=== PATIENT | male | born 1965 | race Caucasian/White ===

== ENCOUNTER → 2018-06-06 08:30 | Outpatient (CLI) | payer OTHER, SELFPAY ==
[2018-06-06 10:21] LABS: Microalbumin,Random Urine 12.6 mg/L (NO RANGE EST.); Microalbumin:Creatinine Ratio 18.6 mg/g CRE (<30 mg/g CRE)
[2018-06-06 10:40] LABS: AST(SGOT) 31 U/L (15-37); Alanine Aminotransfer ALT/SGPT 71 U/L (16-61); Albumin, Serum 3.9 g/dL (3.2-5.0); Alkaline Phosphatase 89 U/L (45-117); Anion Gap 7 (5-15); BUN 19 mg/dL (7-18); BUN/Creat Ratio 26.2 RATIO (10-20); Bilirubin, Direct 0.17 mg/dL (0.00-0.30); Calcium,Total 8.9 mg/dL (8.5-10.1); Chloride 107 mmol/L (98-107); Cholesterol 102 mg/dL (200); Creatinine, Serum 0.72 mg/dL (0.70-1.30); EST Glomerular Filtration Rate 120 mL/min (>60); Est Glom Filt Rate - Afr Amer 145 mL/min (>60); Globulin 3.6 g/dL (2.2-4.2); Glucose 121 mg/dL (74-106); High Density Lipoprotein 54 mg/dL; Potassium 4.2 mmol/L (3.5-5.1); Protein, Total 7.5 g/dL (6.4-8.2); Sodium Level 143 mmol/L (136-145); Triglycerides 51 mg/dL; Very Low Density Lipoprotein 10 mg/dL (5-40)
== END ==
PROVIDERS: Family Provider Family Medicine; PCP Family Medicine; Visit Provider Family Medicine
DX: E11.9 Type 2 diabetes mellitus without complications (principal)
CPT/HCPCS: 36415; 80048; 80061; 80076; 82043; 82570

== ENCOUNTER → 2018-12-20 09:38 | Outpatient (CLI) | payer OTHER, SELFPAY ==
[2018-12-20 12:40] LABS: Microalbumin,Random Urine 37.9 mg/L (NO RANGE EST.); Microalbumin:Creatinine Ratio 48.1 mg/g CRE (<30 mg/g CRE)
[2018-12-20 12:47] LABS: Anion Gap 9 (5-15); BUN 13 mg/dL (7-18); BUN/Creat Ratio 20.9 RATIO (10-20); Calcium,Total 8.5 mg/dL (8.5-10.1); Chloride 109 mmol/L (98-107); Cholesterol 104 mg/dL (200); Creatinine, Serum 0.62 mg/dL (0.70-1.30); EST Glomerular Filtration Rate 143 mL/min (>60); Est Glom Filt Rate - Afr Amer 173 mL/min (>60); Glucose 78 mg/dL (74-106); High Density Lipoprotein 51 mg/dL; Potassium 4.1 mmol/L (3.5-5.1); Sodium Level 144 mmol/L (136-145); Triglycerides 50 mg/dL; Very Low Density Lipoprotein 10 mg/dL (5-40)
== END ==
PROVIDERS: Family Provider Family Medicine; PCP Family Medicine; Visit Provider Family Medicine
DX: E11.9 Type 2 diabetes mellitus without complications (principal)
CPT/HCPCS: 36415; 80048; 80061; 82043; 82570

== ENCOUNTER → 2019-06-19 09:05 | Outpatient (CLI) | payer OTHER, SELFPAY ==
[2019-06-19 11:07] LABS: Anion Gap 4 (5-15); BUN 18 mg/dL (7-18); BUN/Creat Ratio 25.4 RATIO (10-20); Chloride 109 mmol/L (98-107); Cholesterol 117 mg/dL (200); Creatinine, Serum 0.71 mg/dL (0.70-1.30); EST Glomerular Filtration Rate 122 mL/min (>60); Est Glom Filt Rate - Afr Amer 148 mL/min (>60); Glucose 89 mg/dL (74-106); High Density Lipoprotein 58 mg/dL; Potassium 4.1 mmol/L (3.5-5.1); Sodium Level 141 mmol/L (136-145); Triglycerides 54 mg/dL; Very Low Density Lipoprotein 11 mg/dL (5-40)
== END ==
PROVIDERS: Family Provider Family Medicine; PCP Family Medicine; Referring Provider Family Medicine; Visit Provider Family Medicine
DX: I10 Essential (primary) hypertension (principal)
CPT/HCPCS: 36415; 80048; 80061

== ENCOUNTER → 2019-12-20 | Outpatient (CLI) | payer OTHER, SELFPAY ==
[2019-12-20 10:38] LABS: Anion Gap 4 (5-15); BUN 17 mg/dL (7-18); BUN/Creat Ratio 21.8 RATIO (10-20); Calcium,Total 9.3 mg/dL (8.5-10.1); Chloride 109 mmol/L (98-107); Cholesterol 134 mg/dL (200); Creatinine, Serum 0.78 mg/dL (0.70-1.30); EST Glomerular Filtration Rate 109 mL/min (>60); Est Glom Filt Rate - Afr Amer 132 mL/min (>60); Glucose 76 mg/dL (74-106); High Density Lipoprotein 56 mg/dL; Potassium 3.8 mmol/L (3.5-5.1); Sodium Level 141 mmol/L (136-145); Triglycerides 59 mg/dL; Very Low Density Lipoprotein 12 mg/dL (5-40)
[2019-12-20 10:51] LABS: Microalbumin,Random Urine 71.3 mg/L (NO RANGE EST.)
== END | disposition home or self-care (01) ==
LOC: MFPLAB 09:06
PROVIDERS: PCP Family Medicine; Referring Provider Family Medicine; Visit Provider Family Medicine
DX: E11.9 Type 2 diabetes mellitus without complications (principal); I10 Essential (primary) hypertension
CPT/HCPCS: 36415; 80048; 80061; 82043

== ENCOUNTER → 2020-04-21 | Outpatient (CLI) | payer OTHER, SELFPAY ==
--- NOTE | 2020-04-21 08:00 | RAD_ITS ---
STUDY: X-RAY - ESOPHAGUS (BARIUM SWALLOW) WITH FLUOROSCOPY REASON FOR EXAM: Male, 54 years old. DYSPHAGIA X2.5 MONTHS- GETTING WORSE, ACID REFLUX, MID CHEST PAIN and quot; SORE SPOT and quot; AT TIMES WHEN EATING OR DRINKING -- 14 FLUORO IMAGES, 34 FLUORO SEC, 16.13mGy TECHNIQUE: 14 view(s) of the esophagus were obtained following swallowing of barium. FLUOROSCOPY TIME (if supplied): (0:34) minutes/seconds COMPARISON: None. FINDINGS: There is no demonstrated esophageal foreign body. There is no demonstrated stricture or mucosal abnormality. Normal gastroesophageal junction, without a demonstrated hiatal hernia. The patient ingested a 12 mm tablet of barium without any difficulty. Normal visualized aortic arch and descending thoracic aorta. Normal visualized pulmonary parenchyma. Normal visualized osseous structures of the thorax. RAD/Esophagus Dual Contrast IMPRESSION: Normal plain film x-ray examination (barium swallow) of the esophagus. Electronically Signed: Hilton Foster, at 8:37 EDT , Service support ,
== END | disposition home or self-care (01) ==
PROVIDERS: PCP Family Medicine; Referring Provider Family Medicine; Visit Provider Family Medicine
DX: R13.10 Dysphagia, unspecified (principal)
CPT/HCPCS: 74221

== ENCOUNTER → 2020-05-13 11:42 | Outpatient (CLI) | payer OTHER, SELFPAY | PROVIDERS: PCP Family Medicine; Visit Provider Internal Medicine Gastroenterology | DX: Z11.59 Encounter for screening for other viral diseases (principal) | CPT/HCPCS: 87635; G2023; U0003 ==

== ENCOUNTER → 2020-06-19 09:01 | Outpatient (CLI) | payer OTHER, SELFPAY ==
[2020-06-19 10:13] LABS: Anion Gap 5 (5-15); BUN 18 mg/dL (7-18); BUN/Creat Ratio 25.9 RATIO (10-20); Calcium,Total 9.1 mg/dL (8.5-10.1); Chloride 106 mmol/L (98-107); Cholesterol 114 mg/dL (200); EST Glomerular Filtration Rate 125 mL/min (>60); Est Glom Filt Rate - Afr Amer 151 mL/min (>60); Glucose 145 mg/dL (74-106); High Density Lipoprotein 57 mg/dL; Potassium 4.2 mmol/L (3.5-5.1); Sodium Level 140 mmol/L (136-145); Triglycerides 57 mg/dL; Very Low Density Lipoprotein 11 mg/dL (5-40)
== END ==
PROVIDERS: PCP Family Medicine; Referring Provider Family Medicine; Visit Provider Family Medicine
DX: E11.9 Type 2 diabetes mellitus without complications (principal)
CPT/HCPCS: 36415; 80048; 80061

== ENCOUNTER → 2020-12-17 08:41 | Outpatient (CLI) | payer OTHER, SELFPAY ==
[2020-12-17 10:50] LABS: Anion Gap 5 (5-15); BUN 16 mg/dL (7-18); Calcium,Total 9.1 mg/dL (8.5-10.1); Chloride 110 mmol/L (98-107); Cholesterol 118 mg/dL (200); EST Glomerular Filtration Rate 125 mL/min (>60); Est Glom Filt Rate - Afr Amer 151 mL/min (>60); Glucose 85 mg/dL (74-106); High Density Lipoprotein 63 mg/dL; Potassium 3.8 mmol/L (3.5-5.1); Sodium Level 143 mmol/L (136-145); Triglycerides 41 mg/dL; Very Low Density Lipoprotein 8 mg/dL (5-40)
== END ==
PROVIDERS: PCP Family Medicine; Referring Provider Family Medicine; Visit Provider Family Medicine
DX: E11.9 Type 2 diabetes mellitus without complications (principal)
CPT/HCPCS: 36415; 80048; 80061

== ENCOUNTER → 2022-10-10 | Outpatient (CLI) | payer OTHER, SELFPAY ==
[2022-10-10 10:05] LABS: Anion Gap 5 (5-15); BUN 19 mg/dL (7-18); BUN/Creat Ratio 25.6 RATIO (10-20); Calcium,Total 9.5 mg/dL (8.5-10.1); Chloride 107 mmol/L (98-107); Cholesterol 131 mg/dL (200); Creatinine, Serum 0.74 mg/dL (0.70-1.30); EST Glomerular Filtration Rate 115 mL/min (>60); Est Glom Filt Rate - Afr Amer 139 mL/min (>60); Glucose 125 mg/dL (74-106); High Density Lipoprotein 63 mg/dL; Potassium 4.3 mmol/L (3.5-5.1); Sodium Level 141 mmol/L (136-145); Triglycerides 49 mg/dL; Very Low Density Lipoprotein 10 mg/dL (5-40)
[2022-10-10 10:16] LABS: Microalbumin,Random Urine 31.6 mg/L (NO RANGE EST.); Microalbumin:Creatinine Ratio 66.7 mg/g CRE (<30 mg/g CRE)
== END | disposition home or self-care (01) ==
LOC: MFPLAB 08:26
PROVIDERS: PCP Family Medicine; Visit Provider Family Medicine
DX: E11.9 Type 2 diabetes mellitus without complications (principal)
CPT/HCPCS: 36415; 80048; 80061; 82043; 82570

== ENCOUNTER → 2023-04-06 | Outpatient (CLI) | payer OTHER, SELFPAY ==
[2023-04-06 11:20] LABS: Anion Gap 8 (5-15); BUN 24 mg/dL (7-18); BUN/Creat Ratio 32.8 RATIO (10-20); Calcium,Total 9.2 mg/dL (8.5-10.1); Chloride 108 mmol/L (98-107); Cholesterol 120 mg/dL (200); Creatinine, Serum 0.73 mg/dL (0.70-1.30); EST Glomerular Filtration Rate 116 mL/min (>60); Est Glom Filt Rate - Afr Amer 141 mL/min (>60); Glucose 46 mg/dL (74-106); High Density Lipoprotein 74 mg/dL; Potassium 4.4 mmol/L (3.5-5.1); Sodium Level 142 mmol/L (136-145); Triglycerides 24 mg/dL; Very Low Density Lipoprotein 5 mg/dL (5-40)
== END | disposition home or self-care (01) ==
LOC: MFPLAB 09:34
PROVIDERS: PCP Family Medicine; Visit Provider Family Medicine
DX: E11.9 Type 2 diabetes mellitus without complications (principal)
CPT/HCPCS: 36415; 80048; 80061

== ENCOUNTER → 2024-07-12 | Outpatient (CLI) | payer OTHER, SELFPAY ==
[2024-07-12 10:48] LABS: ALB/GLOB Ratio 1.1 RATIO (0.9-2.4); AST(SGOT) 29 U/L (15-37); Alanine Aminotransfer ALT/SGPT 75 U/L (16-61); Albumin, Serum 3.8 g/dL (3.2-5.0); Alkaline Phosphatase 107 U/L (45-117); Anion Gap 6 (5-15); BUN 22 mg/dL (7-18); BUN/Creat Ratio 29.8 RATIO (10-20); Calcium,Total 9.5 mg/dL (8.5-10.1); Chloride 110 mmol/L (98-107); Cholesterol 119 mg/dL (200); Creatinine, Serum 0.74 mg/dL (0.70-1.30); EST Glomerular Filtration Rate 115 mL/min (>60); Est Glom Filt Rate - Afr Amer 139 mL/min (>60); Globulin 3.6 g/dL (2.2-4.2); Glucose 110 mg/dL (74-106); High Density Lipoprotein 54 mg/dL; Potassium 4.1 mmol/L (3.5-5.1); Protein, Total 7.4 g/dL (6.4-8.2); Sodium Level 142 mmol/L (136-145); Triglycerides 59 mg/dL; Very Low Density Lipoprotein 12 mg/dL (5-40)
== END | disposition home or self-care (01) ==
LOC: MFPLAB 08:36
PROVIDERS: PCP Family Medicine; Visit Provider Family Medicine
DX: E11.9 Type 2 diabetes mellitus without complications (principal)
CPT/HCPCS: 36415; 80053; 80061; 82043; 82570

== ENCOUNTER → 2025-04-14 | Outpatient (CLI) | payer OTHER, SELFPAY ==
[2025-04-14 11:10] LABS: Microalbumin:Creatinine Ratio 447.1 mg/g CRE
[2025-04-14 13:00] LABS: ALB/GLOB Ratio 1.7 RATIO (0.9-2.4); AST(SGOT) 32 U/L (<=37); Alanine Aminotransfer ALT/SGPT 45 U/L (<=46); Albumin, Serum 4.5 g/dL (3.4-4.8); Alkaline Phosphatase 76 U/L (40-129); Anion Gap 13 (5-15); BUN 20 mg/dL (4-19); Calcium,Total 9.6 mg/dL (7.6-11.0); Carbon Dioxide 24.9 mmol/L (21.0-32.0); Chloride 106 mmol/L (98-108); Cholesterol 118 mg/dL (<=200); Creatinine, Serum 0.67 mg/dL (0.70-1.20); EST Glomerular Filtration Rate 106 (>60); Globulin 2.7 g/dL (2.2-4.2); Glucose 74 mg/dL (70-99); High Density Lipoprotein 62 mg/dL; Low Density Lipoprotein Calc. 50 mg/dL; Potassium 4.4 mmol/L (3.3-5.1); Protein, Total 7.1 g/dL (5.9-8.4); Sodium Level 143 mmol/L (133-145); Total Bilirubin 0.75 mg/dL (0.00-1.30); Triglycerides 32 mg/dL; Very Low Density Lipoprotein 6 mg/dL (5-40); cholesterol:hdl ratio screen 1.92
== END | disposition home or self-care (01) ==
LOC: MTLAB 09:13
PROVIDERS: PCP Family Medicine; Referring Provider Family Medicine; Visit Provider Family Medicine
DX: I10 Essential (primary) hypertension (principal); E11.9 Type 2 diabetes mellitus without complications
CPT/HCPCS: 36415; 80053; 80061; 82043; 82570

== ENCOUNTER → 2025-10-15 | Outpatient (CLI) | payer OTHER, SELFPAY ==
--- OUTSIDE RECORDS SUMMARY | 2025-10-15 09:18 | XMS RPT_ITS | CCD ---
Author Organization [facility] Inform ion Partnership [facility] Care Team Providers Care Economics Faculty Member Name Role Phone Claritza TRAVIS, Dr. Wheeler Primary Care Provider Claritza TRAVIS, Dr. Wheeler Attending Provider Claritza TRAVIS, Dr. Wheeler Referring Provider [phone] Liam Jerry Referring Unavailable Claritza, Liam Attending Unavailable Liam Jerry Primary Care Unavailable Claritza, Liam Attending Unavailable Claritza, Liam Primary Care Unavailable Problems Problem Classification Problem Date Documented Da te Episodic/Chronic Diabetes mellitus without complication (1 source) Type 2 diabetes mellitus without complications; Translations: [Type 2 diabetes mellitus without complications] Onset: 07-22-2024 Chronic Essential hypertension (1 source) Essential (primary) hypertension; Translations: [Essential (primary) hypertension] Onset: 04-17-2025 Chronic Results Test Name Value Interpretation Reference Range Facility Microalb:Creat Ratio,Random URon 05-06-2025 MALB:CREAT 44.7 mg/g CRE Normal [facility] Comment on above: Result Comment: AMENDED REPORT 05/06/25 1117 MALB:CREAT previously reported as: 447.1 mg/g CRE Performed By: #### L 500.4100, L500.4050, L502.0250 #### [facility] [address] [place], [address] Anion gap in Serum or Plasma Ordered By: Liam Jerry on 04-14-2025 Anion gap [Moles/Vol] 13 mmol/L 5-15 [facility] BUN/creatinine ratioOrdered By: Liam Jerry on 04-14-2025 Urea nitrogen/Creatinine [Mass ratio] 29.0 mg/mg High 10- [facility] Bilirubin, totalOrdered By: Liam Jerry on 04-14-2025 Bilirubin [Mass/Vol] 0.75 mg/dL Normal 0.00-1.30 [facility] Comment on above: Performed By: #### L 500.4100, L500.4050, L502.0250 #### [facility] [address] [place], [address] Calculated very low density lipoprotein (VLDL) cholesterol measurementOrdered By: Liam Jerry on 04-14-2025 Calculated very low density lipoprotein (VLDL) cholesterol measurement 6 mg/dL 5-[address] [facility] Carbon dioxide, total [Moles /volume] in Central venous bloodOrdered By: Liam Jerry on 04-14-2025 CO2 [Moles/Vol] 24.9 mmol/L Normal 21.0-32.[address] [facility] Comment on above: Performed By: #### L 500.4100, L500.4050, L502.0250 #### [facility] [address] [place], [address] Chloride assayOrdered By: Joe Jerry on 04-14-2025 Chloride [Moles/Vol] 106 mmol/L Normal 98-108 [facility] Comment on above: Performed By: #### L 500.4100, L500.4050, L502.0250 #### [facility] [address] [place], [address] Comprehensive Metabolic Prof ilon 04-14-2025 ALK PHOS 76 U/L Normal 40-[address] [facility] Comment on above: Performed By: #### L 500.4100, L500.4050, L502.0250 #### [facility] [address] [place], [address] BUN/CRE 29.0 RATIO High 10-[address] [facility] Comment on above: Performed By: #### L 500.4100, L500.4050, L502.0250 #### [facility] [address] [place], [address] GAP 13 Normal 5-[address] [facility] Comment on above: Performed By: #### L 500.4100, L500.4050, L502.0250 #### [facility] [address] [place], [address] Potassium [Moles/Vol] 4.4 mmol/L Normal 3.3-5.1 [facility] Comment on above: Performed By: #### L 500.4100, L500.4050, L502.0250 #### [facility] [address] [place], [address] T PROT 7.1 g/dL Normal 5.9-8.[address] [facility] Comment on above: Performed By: #### L 500.4100, L500.4050, L502.0250 #### [facility] [address] [place], [address] Comprehensive Metabolic Prof ilOrdered By: Liam Jerry on 04-14-2025 AST [Catalytic activity/Vol] 32 U/L Normal <=[address] [facility] Comment on above: Performed By: #### L 500.4100, L500.4050, L502.0250 #### [facility] [address] [place], [address] Glomerular filtration rate ( GFR) estimation/1.73 sq m using serum, plasma, or whole bOrdered By: Liam Jerry on 04-14-2025 GFR/1.73 sq M.predicted among non-blacks MDRD (S/P/Bld) [Vol rate/Area] 106 mL/min/{1.73_m2} Normal >[address] [facility] Comment on above: mL/min/1.73m2 CKD-EP I Creatinine Equation (2020) Result Comment: mL/m in/1.73m2 CKD-EPI Creatinine Equation (2020) Performed By: #### L 500.4100, L500.4050, L502.0250 #### [facility] [address] [place], [address] LDL calc ser/plasOrdered By: Liam Jerry on 04-14-2025 Cholesterol in LDL [Mass/Vol] 50 mg/dL Normal [facility] Comment on above: Ayruoytiop=762-946 m g/dL & Higher Agfn=277 mg/dL or greater Result Comment: Bord qhsogy=962-480 mg/dL Higher Iuye=502 mg/dL or greater Performed By: #### L 500.4100, L500.4050, L502.0250 #### [facility] [address] [place], [address] Lipid Profileon 04-14-2025 CHOL:HDL 1.[address] [facility] Comment on above: Performed By: #### L 500.4100, L500.4050, L502.0250 #### [facility] [address] [place], [address] Cholesterol in VLDL [Mass/Vol] 6 mg/dL Normal 5-[address] [facility] Comment on above: Performed By: #### L 500.4100, L500.4050, L502.0250 #### [facility] [address] [place], [address] Potassium measurement (mass/ volume)Ordered By: Liam Jerry on 04-14-2025 Potassium (Unsp spec) [Mass/Vol] 4.4 mmol/L 3.3-5.[address] [facility] Random urine creatinine bubba urement (mass/volume)Ordered By: Liam Jerry on 04-14-2025 Creatinine Unsp time (U) [Mass/Vol] 67.10 mg/dL 39.00-259.[address] [facility] Screening total cholesterol/ high density lipoprotein (HDL) cholesterol ratioOrdered By: Liam Jerry on 04-14-2025 Cholesterol.total/Choles terol in HDL [Mass ratio] 1.92 {ratio} [facility] Serum creatinine measurement (mass/volume)Ordered By: Liam Jerry on 04-14-2025 Creatinine [Mass/Vol] 0.67 mg/dL Low 0.70-1.20 [facility] Comment on above: Performed By: #### L 500.4100, L500.4050, L502.0250 #### [facility] [address] [place], [address] Serum globulin measurementOr dered By: Liam Jerry on 04-14-2025 Globulin (S) [Mass/Vol] 2.7 g/dL Normal 2.2-4.2 [facility] Comment on above: Performed By: #### L 500.4100, L500.4050, L502.0250 #### [facility] [address] [place], [address] Serum glucose measurement (m ass/volume)Ordered By: Liam Jerry on 04-14-2025 Glucose [Mass/Vol] 74 mg/dL Normal 70-99 [facility] Comment on above: Performed By: #### L 500.4100, L500.4050, L502.0250 #### [facility] [address] [place], [address] Serum or plasma alanine buchanan otransferase (ALT) measurementOrdered By: Liam Jerry on 04-14-2025 ALT [Catalytic activity/Vol] 45 U/L Normal <=[address] [facility] Comment on above: Performed By: #### L 500.4100, L500.4050, L502.0250 #### [facility] [address] [place], [address] Serum or plasma albumin bubba urement (mass/volume)Ordered By: Liam Jerry on 04-14-2025 Albumin [Mass/Vol] 4.5 g/dL Normal 3.4-4.8 [facility] Comment on above: Performed By: #### L 500.4100, L500.4050, L502.0250 #### [facility] [address] [place], [address] Serum or plasma albumin/glob ulin mass ratioOrdered By: Liam Jerry on 04-14-2025 Albumin/Globulin [Mass ratio] 1.7 {ratio} Normal 0.9-2.[address] [facility] Comment on above: Performed By: #### L 500.4100, L500.4050, L502.0250 #### [facility] [address] [place], [address] Serum or plasma alkaline luna sphatase measurementOrdered By: Liam Jerry on 04-14-2025 ALP [Catalytic activity/Vol] 76 U/L 40-[address] [facility] Serum or plasma calcium bubba urement (mass/volume)Ordered By: Liam Jerry on 04-14-2025 Calcium [Mass/Vol] 9.6 mg/dL Normal 7.6-11.0 [facility] Comment on above: Performed By: #### L 500.4100, L500.4050, L502.0250 #### [facility] [address] [place], [address] Serum or plasma cholesterol in HDL measurement (mass/volume)Ordered By: Liam Jerry on 04-14-2025 Cholesterol in HDL [Mass/Vol] 62 mg/dL Normal [facility] Comment on above: National Cholesterol Education Program (NCEP) guidelines:<40 mg/dL: Low HDL-cholesterol (major risk factor for CHD)>= 60 mg/dL: High HDL-cholesterol (negative risk factor for CHD)HDL-cholesterol is affected by a number of factors, e.g. smoking, exercise, hormones, sex and age. Result Comment: Eli onal Cholesterol Education Program (NCEP) guidelines: <40 mg/dL: Low HDL-cholesterol (major risk factor for CHD) >= 60 mg/dL: High HDL-cholesterol (negative risk factor for CHD) HDL-cholesterol is affected by a number of factors, e.g. smoking, exercise, hormones, sex and age. Performed By: #### L 500.4100, L500.4050, L502.0250 #### [facility] [address] [place], [address] Serum or plasma cholesterol measurement (mass/volume)Ordered By: Liam Jerry on 04-14-2025 Cholesterol [Mass/Vol] 118 mg/dL Normal <=200 [facility] Comment on above: Cholesterol level, D esirable <200 mg/dLBorderline high cholesterol 200-239 mg/dLHigh cholesterol >=240 mg/dLRecommendations of the NCEP Adult Treatment Panel for the following risk-cutoff thresholds for the [place]ag[place] population. Result Comment: Chol esterol level, Desirable <200 mg/dL Borderline high cholesterol 200-239 mg/dL High cholesterol >=240 mg/dL Recommendations of the NCEP Adult Treatment Panel for the following risk-cutoff thresholds for the [place] population. Performed By: #### L 500.4100, L500.4050, L502.0250 #### [facility] [address] [place], [address] Serum or plasma urea nitroge n measurement (mass/volume)Ordered By: Liam Jerry on 04-14-2025 Urea nitrogen [Mass/Vol] 20 mg/dL High 4-[address] [facility] Comment on above: Performed By: #### L 500.4100, L500.4050, L502.0250 #### [facility] [address] [place], [address] Sodium levelOrdered By: Liam Jerry on 04-14-2025 Sodium [Moles/Vol] 143 mmol/L Normal 133-145 [facility] Comment on above: Performed By: #### L 500.4100, L500.4050, L502.0250 #### [facility] [address] [place], [address] Total proteinOrdered By: Alcira Jerry on 04-14-2025 Protein [Mass/Vol] 7.1 g/dL 5.9-8.4 [facility] Triglycerides measurementOrd ered By: Liam Jerry on 04-14-2025 Triglyceride [Mass/Vol] 32 mg/dL Normal [facility] Comment on above: The drugs N-Acetylcy steine and Metamizole may falsely depress this assay. Normal range: <150 mg/dLBorderline High: 150-199 mg/dLHigh: 200-499 mg/dLVery High: >500 mg/dL Result Comment: The drugs N-Acetylcysteine and Metamizole may falsely depress this assay. Normal range: <150 mg/dL Borderline High: 150-199 mg/dL High: 200-499 mg/dL Very High: >500 mg/dL Performed By: #### L 500.4100, L500.4050, L502.0250 #### [facility] [address] [place], [address] Urine albumin measurement [facility] detection limit of 20 mg/L or less (mass/volume)Ordered By: Liam Jerry on 04-14-2025 Albumin DL <= 20 mg/L (U) [Mass/Vol] 30.0 mg/L NO RANGE EST. [facility] Comprehensive Metabolic Prof ilon 07-12-2024 Albumin [Mass/Vol] 3.8 g/dL Normal 3.2-5.0 [facility] Comment on above: Performed By: #### L 502.0250, L500.4100, L500.4050 #### [facility] [address] [place], [address] Albumin/Globulin [Mass ratio] 1.1 {ratio} Normal 0.9-2.[address] [facility] Comment on above: Performed By: #### L 502.0250, L500.4100, L500.4050 #### [facility] [address] [place], [address] ALK P 107 U/L Normal 45-[address] [facility] Comment on above: Performed By: #### L 502.0250, L500.4100, L500.4050 #### [facility] [address] [place], [address] ALT [Catalytic activity/Vol] 75 U/L High 16-[address] [facility] Comment on above: Performed By: #### L 502.0250, L500.4100, L500.4050 #### [facility] [address] [place], [address] AST [Catalytic activity/Vol] 29 U/L Normal 15-[address] [facility] Comment on above: Performed By: #### L 502.0250, L500.4100, L500.4050 #### [facility] [address] [place], [address] Bilirubin [Mass/Vol] 0.50 mg/dL Normal 0.20-1.00 [facility] Comment on above: Result Comment: For patients on eltrombopag therapy, use of Dimension [place] TBIL is not recommended. Performed By: #### L 502.0250, L500.4100, L500.4050 #### [facility] [address] [place], [address] BUN/CRE 29.8 RATIO High 10-[address] [facility] Comment on above: Performed By: #### L 502.0250, L500.4100, L500.4050 #### [facility] [address] [place], [address] CA,Total 9.5 mg/dL Normal 8.5-10.[address] [facility] Comment on above: Performed By: #### L 502.0250, L500.4100, L500.4050 #### [facility] [address] [place], [address] Chloride [Moles/Vol] 110 mmol/L High 98-107 [facility] Comment on above: Performed By: #### L 502.0250, L500.4100, L500.4050 #### [facility] [address] [place], [address] CO2 [Moles/Vol] 26.0 mmol/L Normal 21.0-32.[address] [facility] Comment on above: Performed By: #### L 502.0250, L500.4100, L500.4050 #### [facility] [address] [place], [address] Creatinine [Mass/Vol] 0.74 mg/dL Normal 0.70-1.30 [facility] Comment on above: Result Comment: The validity of the calculated GFR GFRAA in patients over 70 years has not been determined. Clinical correlation is essential. Performed By: #### L 502.0250, L500.4100, L500.4050 #### [facility] [address] [place], [address] EST GFR - AA 139 mL/min Normal >[address] [facility] Comment on above: Result Comment: Afri can Malagasy GFR Calc Performed By: #### L 502.0250, L500.4100, L500.4050 #### [facility] [address] [place], [address] GAP 6 Normal 5-[address] [facility] Comment on above: Performed By: #### L 502.0250, L500.4100, L500.4050 #### [facility] [address] [place], [address] GFR/1.73 sq M.predicted among non-blacks MDRD (S/P/Bld) [Vol rate/Area] 115 mL/min/{1.73_m2} Normal >[address] [facility] Comment on above: Result Comment: Non- GFR Calc Performed By: #### L 502.0250, L500.4100, L500.4050 #### [facility] [address] [place], [address] Globulin (S) [Mass/Vol] 3.6 g/dL Normal 2.2-4.2 [facility] Comment on above: Performed By: #### L 502.0250, L500.4100, L500.4050 #### [facility] [address] [place], [address] Glucose [Mass/Vol] 110 mg/dL High 74-106 [facility] Comment on above: Result Comment: Fast ing Glucose result from 100 to 125 mg/dL suggests IMPAIRED HOMEOSTASIS per A.D.A. criteria. Performed By: #### L 502.0250, L500.4100, L500.4050 #### [facility] [address] [place], [address] Potassium [Moles/Vol] 4.1 mmol/L Normal 3.5-5.1 [facility] Comment on above: Performed By: #### L 502.0250, L500.4100, L500.4050 #### [facility] [address] [place], [address] Sodium [Moles/Vol] 142 mmol/L Normal 136-145 [facility] Comment on above: Performed By: #### L 502.0250, L500.4100, L500.4050 #### [facility] [address] [place], [address] T PROT 7.4 g/dL Normal 6.4-8.[address] [facility] Comment on above: Performed By: #### L 502.0250, L500.4100, L500.4050 #### [facility] [address] [place], [address] Urea nitrogen [Mass/Vol] 22 mg/dL High 7-[address] [facility] Comment on above: Performed By: #### L 502.0250, L500.4100, L500.4050 #### [facility] [address] [place], [address] Lipid Profileon 07-12-2024 Cholesterol [Mass/Vol] 119 mg/dL Normal 200 [facility] Comment on above: Result Comment: <200 mg/dL Desirable 200-240 mg/dL Borderline >240 mg/dL High Risk Performed By: #### L 502.0250, L500.4100, L500.4050 #### [facility] [address] [place], [address] Cholesterol in HDL [Mass/Vol] 54 mg/dL Normal [facility] Comment on above: Result Comment: The drugs N-Acetylcysteine and Metamizole may falsely depress this assay. Reference Range HDL <40 mg/dL Low HDL Cholesterol HDL >or= 60 mg/dL High HDL Cholesterol Performed By: #### L 502.0250, L500.4100, L500.4050 #### [facility] [address] [place], [address] Cholesterol in LDL [Mass/Vol] 53 mg/dL Normal 0-[address] [facility] Comment on above: Performed By: #### L 502.0250, L500.4100, L500.4050 #### [facility] [address] [place], [address] Cholesterol in VLDL [Mass/Vol] 12 mg/dL Normal 5-[address] [facility] Comment on above: Performed By: #### L 502.0250, L500.4100, L500.4050 #### [facility] [address] [place], [address] Triglyceride [Mass/Vol] 59 mg/dL Normal [facility] Comment on above: Result Comment: The drugs N-Acetylcysteine and Metamizole may falsely depress this assay. Serum Triglycerides Reference Interval Normal <150 mg/dL Borderline high 150 - 199 mg/dL High 200 - 499 mg/dL Very High > or = 500 mg/dL Performed By: #### L 502.0250, L500.4100, L500.4050 #### [facility] [address] [place], [address] Microalb:Creat Ratio,Random URon 07-12-2024 Creatinine [Mass/Vol] 48.60 mg/dL Normal NO RANGE EST. [facility] Comment on above: Performed By: #### L 502.0250, L500.4100, L500.4050 #### [facility] [address] [place], [address] MALB:CRE 70.0 mg/g CRE High <30 mg/g CRE [facility] Comment on above: Performed By: #### L 502.0250, L500.4100, L500.4050 #### [facility] [address] [place], [address] MICROALBUMIN,UR 34.0 mg/L Normal NO RANGE EST. [facility] Comment on above: Performed By: #### L 502.0250, L500.4100, L500.4050 #### [facility] [address] [place], [address] Basophil percentageOrdered B y: Liam Jerry on 04-06-2023 Chloride [Moles/Vol] 108 mmol/L 98-107 [facility] Cholesterol [Mass/Vol] 120 mg/dL <200 [facility] Comment on above: <200 mg/dL Desirable 200-240 mg/dL Borderline >240 mg/dL High Risk Glucose [Mass/Vol] 46 mg/dL 74-106 [facility] Comment on above: Glucose result less than 50 mg/dL suggests HYPOGLYCEMIA. Potassium [Moles/Vol] 4.4 mmol/L 3.5-5.1 [facility] Sodium [Moles/Vol] 142 mmol/L 136-145 [facility] Triglyceride [Mass/Vol] 24 mg/dL <199 [facility] Comment on above: The drugs N-Acetylcy steine and Metamizole may falsely depress this assay.Serum Triglycerides Reference Interval Normal <150 mg/dL Borderline high 150 - 199 mg/dL High 200 - 499 mg/dL Very High > or = 500 mg/dL Laboratory - Chemistry and C hemistry - challengeOrdered By: Liam Jerry on 04-06-2023 CO2 [Moles/Vol] 26.0 mmol/L 21.0-32.[address] [facility] Urea nitrogen/Creatinine [Mass ratio] 32.8 mg/mg 10-[address] [facility] No Panel InformationOrdered By: Liam Jerry on 04-06-2023 Estimated GFR (MDRD) Amer 141 mL/min >[address] [facility] Comment on above: GFR Calc Estimated GFR (MDRD) Non-Af Amer 116 mL/min >[address] [facility] Comment on above: Non- GFR Calc Serum or plasma calcium bubba urement (mass/volume)Ordered By: Liam Jerry on 04-06-2023 Calcium [Mass/Vol] 9.2 mg/dL 8.5-10.1 [facility] Serum or plasma cholesterol in HDL measurement (mass/volume)Ordered By: Liam Jerry on 04-06-2023 Cholesterol in HDL [Mass/Vol] 74 mg/dL >[address] [facility] Comment on above: The drugs N-Acetylcy steine and Metamizole may falsely depress this assay. Reference Range HDL <40 mg/dL Low HDL Cholesterol HDL >or= 60 mg/dL High HDL Cholesterol Serum or plasma cholesterol in VLDL measurement (mass/volume)Ordered By: Liam Jerry on 04-06-2023 Cholesterol in VLDL [Mass/Vol] 5 mg/dL 5-[address] [facility] Serum or plasma creatinine m easurement (mass/volume)Ordered By: Liam Jerry on 04-06-2023 Creatinine [Mass/Vol] 0.73 mg/dL 0.70-1.30 [facility] Comment on above: The validity of the calculated GFR & GFRAA in patients over 70 years has not been determined. Clinical correlation is essential. Serum or plasma low density lipoprotein (LDL) cholesterol measurement (mass/volume)Ordered By: Liam Jerry on 04-06-2023 Cholesterol in LDL [Mass/Vol] 41 mg/dL 0-[address] [facility] Serum or plasma urea nitroge n measurement (mass/volume)Ordered By: Liam Jerry on 04-06-2023 Urea nitrogen [Mass/Vol] 24 mg/dL 7-[address] [facility] Thin prep Papanicolaou smear with manual screeningOrdered By: Liam Jerry on 04-06-2023 Thin prep Papanicolaou smear with manual screening 8 5-[address] [facility] Encounters Encounter Date Encounter Type Care Provider Facility Start: 04-14-2025 End: 04-14-[address] Liam Jerry MD Work Phone: [facility] Work Phone: Start: 04-14-2025 End: 04-14-[address] Liam Jerry MD [facility] [place] Work Phone: Start: 04-14-2025 End: 04-14-2025 ambulatory Liam Armandoelsen Facility:[facility] Start: 07-12-2024 End: [facility] Start: 04-06-2023 End: 04-06-[address] [facility] Work Phone: Start: 04-06-2023 End: 04-06-2023 [facility] [facility] [place] [facility] Procedures Date Procedure Procedure Detail Performing Clinician Start: 04-14-2025 Urine microalbumin/creatinine ratio measurement Dr. Liam Jerry MD Work Phone: Payers Date Payer Category Payer Self-pay [id number] Unknown [id number] Unknown [facility] [id number] Unknown [id number] Unknown [facility] [id number] Unknown [id number] Unknown [id number] Social History Date Type Detail [facility] Work Phone: Start: 1965 Sex Assigned At Male [facility] Work Phone: Evaluation note Note Date & Type Note Facility Evaluation note No assessment information availa ble [facility] Work Phone: Reason for referral (narrative) Note Date & Type Note Facility Reason for referral (narrative) No reason for referral information available [facility] Work Phone: Summary Purpose Family History No Family History Records Found Advance Directives No Advanced Directives Records Found Additional Source Comments Care Teams (unrecognized sec tion and content) Team Status: Active Member Role Status Dates Dr. Liam Jerry MD Family Provider Active Dr. Liam Jerry MD Primary Care Provider Active Team Status: Inactive Member Role Status Dates Dr. Liam Jerry MD Primary Care Provider, Attending Provider Active Team Status: Inactive Member Role Status Dates Dr. Liam Jerry MD Primary Care Provider Active Start: April 14, 2025 End: April 14, 2025 Dr. Liam Jerry MD Attending Provider Active Start: April 14, 2025 End: April 14, 2025 Dr. Liam Jerry MD Referring Provider Active Start: April 14, 2025 End: April 14, 2025 Goals (unrecognized section and content) Goals may be documented in a n alternate sectionGoals may be documented in an alternate section (unrecognized sect ion and content) No Status Records Found INFORMATION SOURCE (unrecogn ized section and content) DATE CREATED AUTHOR 05/07/2025 [facility] FOR RECORDS PERTAINING TO PATIENTS WHO ARE OR HAVE BEEN ENROLLED IN A CHEMICAL DEPENDENCY/SUBSTANCEABUSE PROGRAM, SOME INFORMATION MAY BE OMITTED. This clinical summary was aggregated from multiple sources. Caution should be exercised in using it in the provision of clinical care. This summary normalizes information from multiple sources, and as a consequence, information in this document may materially change the coding, format and clinical context of patient data. In addition, data may be omitted in some cases. CLINICAL DECISIONS SHOULD BE BASED ON THE PRIMARY CLINICAL RECORDS. [facility] [employer] provides no warranty or guarantee of the accuracy or completeness of information in this document.
[2025-10-15 10:33] LABS: AST(SGOT) 50 U/L (<=37); Alanine Aminotransfer ALT/SGPT 99 U/L (<=46); Albumin, Serum 4.4 g/dL (3.4-4.8); Alkaline Phosphatase 74 U/L (40-129); Anion Gap 11 (5-15); BUN 19 mg/dL (4-19); BUN/Creat Ratio 27.3 RATIO (10-20); Calcium,Total 9.8 mg/dL (7.6-11.0); Carbon Dioxide 27.9 mmol/L (21.0-32.0); Chloride 104 mmol/L (98-108); Cholesterol 124 mg/dL (<=200); Globulin 2.7 g/dL (2.2-4.2); Glucose 85 mg/dL (70-99); Low Density Lipoprotein Calc. 56 mg/dL; Potassium 4.0 mmol/L (3.3-5.1); Triglycerides 41 mg/dL; Very Low Density Lipoprotein 8 mg/dL (5-40); cholesterol:hdl ratio screen 2.15
[2025-10-15 10:34] LABS: Creatinine, Urine (random) 83.20 mg/dL (39.00-259.00); Microalbumin,Random Urine 43.5 mg/L (<20 mg/L)
== END | disposition home or self-care (01) ==
LOC: MFPLAB 08:43
PROVIDERS: PCP Family Medicine; Visit Provider Family Medicine
DX: E11.9 Type 2 diabetes mellitus without complications (principal)
CPT/HCPCS: 36415; 80053; 80061; 82043; 82570